=== PATIENT | female | born 1995 | race African-American/Black ===

== ENCOUNTER 2017-12-03 01:56 | Emergency (ER) | payer OTHER ==
[2017-12-03] MEDS ORDERED: Albuterol Sulfate 2.5 mg/3 ml Neb ONE (03:24)
[2017-12-03] MEDS ORDERED: Dexamethasone 10 MG/ML VIAL ONE (03:26)
[2017-12-03] MEDS ORDERED: Acetaminophen/Codeine 30-300mg Tablet ONE (03:26)
--- NOTE | 2017-12-03 08:15 | NM ---
PRELIMINARY REPORT/[facility]/EMERGENCY AFTER HOURS PROCEDURE: EXAM: NM Lung Perfusion and Ventilation Scan EXAM DATE/TIME: Exam ordered 12/03/2017 3:37 AM CLINICAL HISTORY: 22 years old, female; Signs and symptoms; Cough and dyspnea and shortness of breath; Symptoms not spe cified; Patient HX: Elevated d-dimer. 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 Pt states that today she got off of work and felt SOB. Reports back pain and chest pain with coughing. Pt reports chills and lighthea dedness. Pt had white count of 13 at [place] and d-dimer was not negative. Pt had chest CT completed t here which was suboptimal but negative. Pt states she coughed during CT scan. Denies h/o dvt or pe. L mp beginning of october, pt has h/o irregular periods. Not on control or any other hormones. Pt reports fmh of pe. Pt given lovenox and toradol at [place] TECHNIQUE: Nuclear Medicine ventilation and perfusion images of the lungs were obtained in multiple projections following radiopharmaceutical inhalation/injection. COMPARISON: No relevant prior studies available. FINDINGS: Ventilation: Normal. No ventilation defects. Perfusion: Normal. No perfusion defects. IMPRESSION: No findings to suggest pulmonary embolism. Thank you for allowing us to participate in the care of your patient. Dictated and Authenticated by: Levi Wray MD 12/03/2017 5:07 AM Central Time ([place] & [place])] FINAL REPORT VQ SCAN: I agree with the preliminary report given by Dr. Levi Wray of [facility]. 11.9 mCi Xenon 133 were administered by inhalation for the ventilation study followed by the intraven ous administration of 6.6 mCi technetium 99m-MAA for the perfusion scan. There is no evidence of PE. POS: OFF
== END 2017-12-03 05:31 | disposition home or self-care (01) ==
LOC: ERS 01:56
DX: J20.8 Acute bronchitis due to other specified organisms (principal)
CPT/HCPCS: 78582; 87804; 94640; 96374; A9540; A9558; J1100; J7611

== ENCOUNTER 2018-01-26 19:38 | Emergency (ER) | payer OTHER ==
[2018-01-26 20:03] LABS: #Eosinphils 0.1 thou/uL (0.0-0.7); #Lymphocytes 1.4 thou/uL (1.20-3.40); #Monocytes 0.9 thou/uL (0.11-0.59); #Neutrophils 7.5 thou/uL (1.40-6.50); %Basophils 0.2 % (0.0-1.0); %Eosinophils 1.5 % (0.0-10.0); %Lymphocytes 13.9 % (21.0-51.0); %Monocytes 9.2 % (0.0-10.0); %Neutrophils 75.2 % (42.0-75.0); Hemoglobin 15.5 g/dL (12.0-16.0); Mean Corpuscular HGB CONC 33.4 g/dL (32.0-36.0); Mean Corpuscular Hemoglobin 27.7 pg (27.0-31.0); Mean Corpuscular Volume 82.9 fl (81.0-99.0); Mean Platelet Volume 7.5 fL (7.4-10.4); Platelet Count 273 thou/uL (130-400); RBC Distribution Width 12.3 % (11.5-14.5)
[2018-01-26] MEDS ORDERED: Acetaminophen 500 MG TAB ONE (20:08)
[2018-01-26] MEDS ORDERED: Ibuprofen 800 MG TAB ONE (20:08)
[2018-01-26] MEDS ORDERED: Dexamethasone 10 MG/ML VIAL ONE (20:20)
[2018-01-26 20:22] LABS: BHCG - Serum Negative (NEGATIVE); Pregs Control Background? CLEAR/WHITE (CLR/WHITE); Pregs Control Bar Appear? YES (CONTROL BAR)
[2018-01-26 20:28] LABS: ALT (SGPT) 14 U/L (8-55); AST (SGOT) 15 U/L (5-34); Albumin 4.4 g/dL (3.5-5.0); Alkaline Phosphatase 61 U/L (40-150); Anion Gap 15 mmol/L (10-20); BUN (Urea Nitrogen) 11 mg/dL (7.0-18.7); Bilirubin, Total 0.4 mg/dL (0.2-1.2); Calc. Creatinine Clearance 0 mL/min (70-130); Calcium 9.9 mg/dL (7.8-10.44); Carbon Dioxide 25 mmol/L (22-29); Chloride 103 mmol/L (98-107); Estimated GFR-MDRD 89; Globulin 4.2 g/dL (2.4-3.5); Glucose 106 mg/dL (70-105); Potassium 3.6 mmol/L (3.5-5.1); Protein, Total 8.6 g/dL (6.0-8.3); Sodium 139 mmol/L (136-145)
== END 2018-01-26 22:17 | disposition home or self-care (01) ==
LOC: ERS 19:38
DX: J02.9 Acute pharyngitis, unspecified (principal); E86.0 Dehydration
CPT/HCPCS: 80053; 84703; 85025; 87081; 87430; 96361; 96365; 96375; J0696; J1100

== ENCOUNTER 2018-08-11 13:56 | Outpatient (CLI) | payer OTHER ==
--- NOTE | 2018-08-11 16:21 | ULT ---
ULTRASOUND AT LESS THAN FOURTEEN WEEKS: HISTORY: A 23-year-old female with a history of a first trimester with a history of multiple miscarr iages in the past. TECHNIQUE: Transabdominal, transvaginal, and vascular duplex with color and spectral Doppler imaging is performe d. FINDINGS: The uterus is within normal limits in size. The right ovary measures 2.6 x 2.9 x 3.7 cm. The left o vary is not seen. There is a 1.4 x 1.8 cm right-sided ovarian cyst. There is an intrauterine gestat ional sac and probably a small pole. There appears to be cardiac activity within the very smal l pole with a heart rate of 91 beats per minute. No definite extra-chorionic hemorrhage. Barnhart-rump is very small and approximates 0.3 cm, which would be equivalent to 5 weeks' 6 days' ges tation with a gestational sac. Mean size of 1.5 cm is equivalent to 6 weeks 2 days. On vascular duplex with color and spectral Doppler imaging demonstrates arteria inflow and venous out flow to the right ovary. IMPRESSION: Evidence for an early intrauterine gestational sac at approximately 6 weeks 1 day with an expected da te of confinement of 04/05/2019. heart rate approximately 91 beats per minute. Consider follow-up serum hCGs to document evolution of the , if there is concern, a follow-u p study in several weeks might be considered. POS: REDDY
== END 2018-08-11 13:57 | disposition home or self-care (01) ==
LOC: SCSULT 13:56
PROVIDERS: ATTEND Family Medicine
DX: Z34.81 Encounter for supervision of other normal pregnancy, first trimester (principal)
CPT/HCPCS: 76856

== ENCOUNTER 2018-11-18 12:53 | Outpatient (CLI) | payer OTHER ==
--- NOTE | 2018-11-18 14:41 | ULT ---
OBSTETRIC SONOGRAM: History: Second trimester gestation. evaluation. FINDINGS: Single intrauterine gestation in cephalic presentation. Cervix is closed and 3.2 cm. Grade 0 placenta is posterior. Amniotic fluid is within normal limits. spine and kidneys are intact as visualiz ed. Three vessel cord shows a normal insertion. No gross intracranial abnormalities are apparent. Fou r chamber heart shows motion at 153 beats/minute. Measurements are as follows: BPD 20 weeks 1 day HC 20 weeks 0 day AC 20 weeks 2 days FL 20 weeks 3 days Estimated date of delivery based on today's sonogram is 04-06-19. Hadlock 30 percentile. IMPRESSION: Single viable intrauterine gestation with estimated gestational age based on today's sonogram of 20 w eeks 1 day. POS: TPC
== END 2018-11-18 12:54 | disposition home or self-care (01) ==
LOC: SCSULT 12:53
PROVIDERS: ATTEND Family Medicine
DX: Z34.92 Encounter for supervision of normal pregnancy, unspecified, second trimester (principal); Z3A.19 19 weeks gestation of pregnancy
CPT/HCPCS: 76805

== ENCOUNTER 2019-04-04 23:52 | Day surgery (SDC) | payer OTHER ==
[2019-04-05 00:37] VITALS: BMI 39.0
--- NOTE | 2019-04-05 01:15 | PDOC.FPROB ---
FMR OB H&P: Medications - Current Home Medications: Medication Instructions Recorded Confirmed Type Ferrous Sulfate [Iron] 325 mg PO DAILY 04/05/19 04/05/19 History Pnv No.95/Ferrous Fum/Folic AC 1 each PO 04/05/19 History [ [place]let] Allergies/Adverse Reactions: Allergies Allergy/AdvReac Type Severity Reaction Status Date / Time No Known Allergies Allergy Verified 04/05/19 00:31 FMR OB H&P: A/P - Problem List (1) Term Current Visit: Yes Status: Acute Code(s): Z34.90 - ENCNTR FOR SUPRVSN OF NORMAL , UNSP, UNSP TRIMESTER Discussion: Date/Time: 04/05/19 011 PCP: Maya Perez HPI: This is a 22 yo at 39.5 wks by 5.6wk US presenting for contractions which started about 2 hours prior to arrival. She states she is feeling them about every 5 minutes and thinks she lost her mucous plug earlier in the day. She was closed when Dr. Perez checked in the office earlier in the week. She denies leakage of fluid. States she feels baby moving often. She is able to talk through the contractions but states they are fairly painful. Denies FRAGA, visual changes, SOB, or swelling. History: OB hx: 2 spontaneous abortions PMH: anxiety/depression no meds PSH: neg Meds: PNV, iron All: NKDA Soc Hx: denies smoking, alcohol, drugs Fam Hx: denies downs, denies pre-e, + autism Blood type: B neg Abs screen neg Hep b neg RPR/HIV neg Rubella non-immune GC/CT neg 1 hr GCT: 99 GBS: neg REVIEW OF SYSTEMS: Gen: no fever, chills, or sweats Neuro: no numbness/tingling, no weakness, denies headache ENT: denies congestion Eyes: no visual changes Resp: no cough, no SOB, no wheeze Card: denies chest pain, no palpitations GI: no N/V/D, no abdominal pain : no dysuria, no hematuria Skin: no rash, no erythema Psych: denies hx anxiety/depression Vitals: T: 98.3 R: 18 BP: 131/78 P:90 Sat: 98% on RA Wt: 130kg PHYSICAL EXAMINATION: General: NAD, alert and oriented x3 HEENT: EOMI, normal sclera Neck: Supple. Full ROM. Heart/Cardiovascular System: RRR, Cap refill < 3 seconds, no rub, no murmur Lungs/Respiratory System: clear to auscultation bilaterally. No increased work of breathing. Room air. Abdomen/Gastro-Intestinal System: no abdominal tenderness, normal bowel sounds, Gravid, obese Extremities: Warm extremities. No cyanosis or edema. Neuro: No gross deficits appreciated Psychiatry: Awake, Alert and cooperative with exam Skin: No lesions, rashes Musculoskeletal: Full ROM A/P: This is a 22 yo at 39.5 wks by 1TUS presenting for contractions FHT: baseline 140, moderate variability, accels 15x15 present Charlack: cxns q 2-3 minutes # Labor Check - 1.5/50/-2/soft/intact at 0040 - cxns q 2-3 min - will re-check in 1-2 hours to assess for progression - would like epidural when applicable # Term intrauterine - B neg blood type, s/p rhogam - rubella non-immune, MMR PP - GBS neg - BMI 39 OBGYN FACULTY: I have seen and examined this patient. Patient of Dr Maya Santiago with latent labor at 1.5cm. Has IOL Saturday. No CX warp changer 1.5 hrs. Strip is reactive. OK for outpatient folow up as CTX have spaced out some. Vitals stable.
[2019-04-05] MEDS ORDERED: hydrALAZINE 20 MG/ML VIAL SLOW IVP PRN (01:20)
--- NOTE | 2019-04-05 02:32 | PDOC.EVN ---
Event Note - Event Note Event Note: no change after 1.5 hours cxns spaced out to every 5-7 FHT: accels present, good variability, no decels patient lives in [place] discussed going home with precautions and patient agrees with plan will return for strong contractions 5 min apart, ROM, bleeding, or fever Patient has f/u with Maya Perez on Saturday. OBGYN Faculty: Agreed. I have seen the patient at bedside, she is comfortable and does not appear to be in actice labor. Vitals are stable and WNL.
== END 2019-04-05 02:38 | disposition home or self-care (01) ==
LOC: L&D/OP 23:52
PROVIDERS: ATTEND Family Medicine
DX: O47.1 False labor at or after 37 completed weeks of gestation (principal); O99.343 Other mental disorders complicating pregnancy, third trimester; F41.9 Anxiety disorder, unspecified; F32.9 Major depressive disorder, single episode, unspecified; Z3A.39 39 weeks gestation of pregnancy
CPT/HCPCS: 99283

== ENCOUNTER 2019-04-06 05:36 | Day surgery (SDC) | payer OTHER ==
--- NOTE | 2019-04-07 04:29 | SS ---
DATE OF ADMISSION: 04/06/2019 DATE OF DISCHARGE: 04/06/2019 REGULAR PHYSICIAN: Levi Perez MD EVALUATING PHYSICIAN: Andres Dye MD CHIEF COMPLAINT: Contractions at home. HISTORY OF PRESENT ILLNESS: Ms. Raza is a 23-year-old black G1, P0 with an estimated date of confinement of 04/07/2019, who presents complaining of contractions every 5 minutes at home since earlier this morning. She denies ruptured membranes or vaginal bleeding. Her care has been with Dr. Perez. She was seen for similar complaints approximately 36 hours ago. PAST MEDICAL HISTORY: None. PAST SURGICAL HISTORY: None. CURRENT MEDICATIONS: vitamins and iron. ALLERGIES: NO KNOWN ALLERGIES. SOCIAL HISTORY: Denies tobacco, alcohol, or drug use. FAMILY HISTORY: Unremarkable. REVIEW OF SYSTEMS: She denies nausea, vomiting, fever, chills, ruptured membranes or vaginal bleeding. PHYSICAL EXAMINATION: VITAL SIGNS: Vital signs in triage are stable. She is afebrile. GENERAL: She is pleasant, in no acute distress. ABDOMEN: Soft, nontender, and gravid. CERVIX: Cervical exam by labor nurse is 1-2 cm dilated, 75% effaced with the vertex at the -1 position. This is essentially equivalent to her last exam here. heart rate tracing is stable. Good [id number] variability and accelerations are seen. Irregular contractions are noted. ASSESSMENT: 1. Term intrauterine . 2. Prodromal labor, no evidence of active labor at this time. PLAN: The patient has been dismissed to home. She has been given complete precautions. She has an appointment with Dr. Perez this week. Dr. Perez was notified. Job ID: [id number]
--- NOTE | 2019-04-07 12:12 | HP ---
HISTORY: This is a 23-year-old black female, G3, P0, with EDC of 04/07/2019, who is being admitted to Labor and Delivery for active labor. The patient's course has been uncomplicated. She has done well. She states that she has been jim regularly for the past 24 hours. She has had several visits to Labor and Delivery. She was seen this morning in the office and found to be 6 cm dilated, 0 station with bag of water bulging. PAST MEDICAL HISTORY: Unremarkable. ALLERGIES: NONE. PAST SURGICAL HISTORY: None. FAMILY HISTORY: She does have a sibling with autism and ADHD. No family history of cancers or heart disease. SOCIAL HISTORY: She is single, has a common-law partner. She does not smoke and does not drink. REVIEW OF SYSTEMS: As above. PHYSICAL EXAMINATION: VITAL SIGNS: Stable. Afebrile. HEENT: Clear. HEART: Regular rate and rhythm. LUNGS: Clear. ABDOMEN: Gravid. Contractions every 2 to 3 minutes. Cervix 6 cm, 100% bulging bag of water, 0 station. LABORATORY DATA: GBS negative. HIV negative. 1-hour GCT 99. Pap normal. GC and chlamydia negative. TSH, normal. HIV, negative. Hepatitis B, negative. RPR, negative. Rubella nonimmune. B negative blood type. ASSESSMENT: 1. Term . 2. Active labor, 6 cm dilated. 3. B negative blood type. PLAN: 1. Admit to L and D. 2. Routine L and D orders. 3. Anesthesia for epidural. Job ID: [id number]
== END 2019-04-06 06:45 | disposition home or self-care (01) ==
LOC: L&D/OP 05:36
PROVIDERS: ATTEND Family Medicine
DX: O47.9 False labor, unspecified (principal)
CPT/HCPCS: 99282

== ENCOUNTER 2019-04-07 04:17 | Inpatient (IN) | payer OTHER ==
[2019-04-07] MEDS ORDERED: Bupivacaine HCl 0.5%/Epinephrine 1:200,000/PF 30 ml Vial ONE (09:00)
[2019-04-07] MEDS ORDERED: Lidocaine 2% MPF 10 ML AMP (For Epidural Use) ONE (09:00)
[2019-04-07] MEDS ORDERED: HYDROcodone/Acetaminophen 5/325 mg Tablet PO PRN (11:33)
[2019-04-07] MEDS ORDERED: Promethazine HCl 25 MG/ML VIAL IM PRN ×2 (11:33→12:17)
[2019-04-07] MEDS ORDERED: hydrALAZINE 20 MG/ML VIAL SLOW IVP PRN ×2 (11:33→22:32)
[2019-04-07] MEDS ORDERED: NS / Oxytocin 40 units/1000ml 1,000 ML IV PRN (11:33)
[2019-04-07] MEDS ORDERED: Acetaminophen 500 MG TAB PO PRN (11:33)
[2019-04-07] MEDS ORDERED: Methylergonovine 0.2 MG/ML VIAL IM PRN (11:33)
[2019-04-07] MEDS ORDERED: Lidocaine 1% (PF) 30 ML VIAL SC PRN (11:33)
[2019-04-07] MEDS ORDERED: Misoprostol 200 MCG TAB PR PRN (11:33)
[2019-04-07] MEDS ORDERED: Ibuprofen 800 MG TAB PO PRN (11:33)
[2019-04-07] MEDS ORDERED: Ondansetron PF 4 MG/2 ML Vial IVP PRN ×3 (11:33→22:32)
[2019-04-07] MEDS: Lactated Ringer's 1,000 ML IV SCH ×2 (11:45→23:25)
[2019-04-07] MEDS ORDERED: Fentanyl 4 mcg/Bup 0.1% Cadd 100 ML ONE ×2 (12:01→17:37)
[2019-04-07 12:06] LABS: Hemoglobin 13.6 g/dL (12.0-16.0); Mean Corpuscular HGB CONC 33.5 g/dL (32.0-36.0); Mean Corpuscular Hemoglobin 26.6 pg (27.0-31.0); Mean Corpuscular Volume 79.3 fL (78.0-98.0); Mean Platelet Volume 8.4 fL (7.4-10.4); Platelet Count 221 thou/uL (130-400); RBC Distribution Width 14.7 % (11.5-14.5); Red Blood Cell (RBC) Count 5.11 mill/uL (4.20-5.40); White Blood Cell (WBC) Count 15.5 thou/uL (4.8-10.8)
[2019-04-07] MEDS ORDERED: diphenhydrAMINE 50 MG/ML VIAL IVP PRN (12:17)
[2019-04-07] MEDS ORDERED: ePHEDrine/0.9% NaCl/PF SYRINGE 50 mg/10 ml SLOW IVP PRN (12:17)
[2019-04-07] MEDS ORDERED: Naloxone HCl 0.4 mg/ml Vial IVP PRN ×2 (12:17)
[2019-04-07] MEDS ORDERED: Lactated Ringer's 500 ML IV PRN (12:17)
[2019-04-07] MEDS ORDERED: Communication Order-Pharmacy FS SCH (12:30)
[2019-04-07 12:50] VITALS: BMI 38.6
[2019-04-07 12:53] LABS: Syphilis Antibody Nonreactive (Nonreactive); Syphilis Antibody Index 0.03 S/CO (<1.00 Non-Reactive)
[2019-04-07 12:55] LABS: HBSAg Index 0.24 S/CO (0-0.99); Hep B Surf Ag Non-Reactive S/CO (NonReactive)
[2019-04-07] MEDS: Fentanyl 4 mcg/Bupivacaine 0.1% Cassette 100 ML EPIDURAL SCH ×2 (13:08→17:46)
[2019-04-07] MEDS ORDERED: NS w/ Oxytocin 10 units 0 ML ONE (14:52)
[2019-04-07] MEDS ORDERED: NS w/ Oxytocin 10 units 500 ML ONE (14:52)
[2019-04-07] MEDS ORDERED: NS w/ Oxytocin 10 units 500 ML IVPB SCH (15:45)
[2019-04-07] MEDS ORDERED: diphenhydrAMINE 25 MG CAP PO PRN (22:32)
[2019-04-07] MEDS ORDERED: Bisacodyl 10 MG SUPP PR PRN (22:32)
[2019-04-07] MEDS ORDERED: Milk Of Magnesia 30 ML UDCUP PO PRN (22:32)
[2019-04-07] MEDS ORDERED: Lanolin Ointment 7 GM TUBE TOP PRN (22:32)
[2019-04-07] MEDS ORDERED: Preparation H Ointment 28 GM TUBE PR PRN (22:32)
[2019-04-07] MEDS ORDERED: NS / Oxytocin 40 units/1000ml 1,000 ML IV SCH (22:32)
[2019-04-07] MEDS ORDERED: Benzocaine-Menthol 82.5 ML CAN TOP PRN (22:32)
[2019-04-07] MEDS: Acetaminophen 325 MG TAB PO PRN (22:53)
[2019-04-07] MEDS: Ibuprofen 800 MG TAB PO SCH (23:12)
[2019-04-08] MEDS: Ibuprofen 800 MG TAB PO SCH ×3 (06:01→21:25)
[2019-04-08] MEDS: Docusate Calcium (SURFAK) 240 MG CAP PO SCH ×2 (08:09→21:25)
[2019-04-08] MEDS: Prenatal Vitamin 1 TAB PO SCH (08:09)
[2019-04-08] MEDS: Ferrous Sulfate 325 MG TAB PO SCH ×2 (08:09→15:43)
[2019-04-08] MEDS ORDERED: Adacel (T-DAP) 0.5 ML SYRINGE IM ONE (09:00)
[2019-04-08 09:15] LABS: Hemoglobin 11.9 g/dL (12.0-16.0); Mean Corpuscular HGB CONC 34.1 g/dL (32.0-36.0); Mean Corpuscular Hemoglobin 27.6 pg (27.0-31.0); Mean Corpuscular Volume 81.1 fL (78.0-98.0); Mean Platelet Volume 8.1 fL (7.4-10.4); Platelet Count 193 thou/uL (130-400); RBC Distribution Width 14.9 % (11.5-14.5); Red Blood Cell (RBC) Count 4.32 mill/uL (4.20-5.40); White Blood Cell (WBC) Count 18.5 thou/uL (4.8-10.8)
--- NOTE | 2019-04-08 11:50 | PDOC.OBLPN ---
FMR OB Labor PN: Subj - Interval History Hospital Day: 1 Chief Complaint: Medically indicated IOL for IUGR Indentification: 23 year old at 39.2 wks by 8.2 wk sono Interval History: Balloon placed, pain better controlled with epidural FMR OB Labor PN: Obj - Maternal Vital signs: BP: [] HR: [] RR: [] Tmax: [] Pox: []% on [] Wt: [] - Procedures Procedures: Cook's balloon FMR OB Labor PN: Exam - Physical Exam General: NAD, awake, alert and oriented HEENT: MMM, grossly normal vision, grossly normal hearing Heart: RRR, pulses present, no edema General: no respiratory distress Abdomen: soft, gravid, non-tender Musculoskeletal: pulses present, FROM in all four extremities Neurological: no focal deficit Skin: no rash, capillary refill <2 seconds - Pelvic Exam SVE: By Vitaly @ 11:30 AM 2/60/-3, soft, midposition FMR OB Labor PN: Data - Labs Lab results: Laboratory Results - last 24 hr 04/07/19 04/07/19 04/07/19 11:46 11:46 11:46 WBC RBC Hgb Hct MCV MCH MCHC RDW Plt Count MPV Syphilis IgG/IgM Ab Nonreactive Hep Bs Antigen Non-Reactive Blood Type B NEGATIVE Antibody Screen NEGATIVE 04/07/19 04/08/19 11:46 08:59 WBC 15.5 H 18.5 H RBC 5.11 4.32 Hgb 13.6 11.9 L Hct 40.5 35.0 L MCV 79.3 81.1 MCH 26.6 L 27.6 MCHC 33.5 34.1 RDW 14.7 H 14.9 H Plt Count 221 193 MPV 8.4 8.1 Syphilis IgG/IgM Ab Hep Bs Antigen Blood Type Antibody Screen FMR OB Labor PN: A/P Discussion: Date/Time: 04/08/19 1148 This H&P was discussed with [] and [] who agree with the above documentation and plan.
[2019-04-09] MEDS: Ibuprofen 800 MG TAB PO SCH ×2 (05:24→13:55)
[2019-04-09] MEDS: Ferrous Sulfate 325 MG TAB PO SCH (08:13)
[2019-04-09] MEDS: Prenatal Vitamin 1 TAB PO SCH (08:49)
[2019-04-09] MEDS: Docusate Calcium (SURFAK) 240 MG CAP PO SCH (08:49)
[2019-04-09 11:58] VITALS: BP 122/59; TEMP 98.5
--- NOTE | 2019-04-09 12:42 | PDOC.PP ---
Post Progress Note Post Day #: 2 Subjective: Doing well on PP day #2, no pain, baby feeding well. PO intake tolerated: yes Flatus: yes Ambulation: yes Vital Signs (12 hours) Temp Pulse Resp BP Pulse Ox 04/09/19 11:57 98.5 F 92 20 122/59 L 04/09/19 08:01 98.6 F 78 20 119/54 L 97 Weight Weight 285 lb - Physical Examination General: NAD Cardiovascular: no m/r/g, RRR Respiratory: clear to auscultation bilaterally, non-labored breathing Abdominal: + bowel sounds, lochia, no distention, appropriately TTP Result Diagrams: 04/08/19 08:59 Additional Labs: Post Labs Blood Type B NEGATIVE 04/07/19 11:46 Hep Bs Antigen Non-Reactive S/CO (NonReactive) 04/07/19 11:46 (1) Vaginal delivery Code(s): O80 - ENCOUNTER FOR FULL-TERM UNCOMPLICATED DELIVERY Status: Acute - Assessment/Plan Routine care D/C home F/U with Dr. Perez in 6 weeks
[2019-04-09] MEDS: Acetaminophen 325 MG TAB PO PRN (12:43)
[2019-04-09] MEDS ORDERED: Measles/Mumps/Rubella 10 MCG/0.5 ML VIAL SC ONE (14:30)
--- NOTE | 2019-04-10 11:15 | OP ---
DATE OF PROCEDURE: 04/07/2019 DELIVERING PHYSICIAN: Adele Haider DO PROCEDURE PERFORMED: Spontaneous vaginal delivery. ANESTHESIA: Epidural, local for repair. ESTIMATED BLOOD LOSS: Approximately 500 mL. PREOPERATIVE DIAGNOSIS: Term intrauterine , in labor. POSTOPERATIVE DIAGNOSES: 1. Term intrauterine , delivered. 2. Spontaneous vaginal delivery. INDICATIONS FOR PROCEDURE: This is a 23-year-old G3, P0-0-2-0, who presented in active labor. DELIVERY NOTE: This is a 23-year-old female G3, P0-0-2-0, delivered viable female via spontaneous vaginal delivery. Following an uneventful intrapartum course, a vigorous female was delivered over an intact perineum in the occiput anterior position. Anterior shoulder and the remainder of the body delivered. No nuchal cord. The head was held down. The mouth and nares were bulb suctioned. Cord was clamped and cut and cord blood collected. Placenta was delivered intact with a three-vessel cord noted. Fundal massage was performed and the fundus was firm. The cervix and vagina were inspected and found to have a second-degree perineal laceration which was repaired in the usual fashion with good approximation and hemostasis. Local anesthetic was used. Infant went to nursery in good condition for routine care. Apgars were 8 and 9 at 1 and 5 minutes respectively. The patient tolerated the delivery well, went to after routine recovery/care. Job ID: [id number] [facility]
== END 2019-04-09 14:33 | disposition home or self-care (01) | DRG 807 ==
LOC: L&D 11:10 → 3SE 22:57
PROVIDERS: ADMIT Family Medicine; ATTEND Family Medicine
PROC: 10E0XZZ Delivery of Products of Conception, External Approach (ICD-10-PCS; principal; 2019-04-08)
PROC: 0KQM0ZZ Repair Perineum Muscle, Open Approach (ICD-10-PCS; 2019-04-08)
DX: O70.1 Second degree perineal laceration during delivery (principal); Z37.0 Single live birth; Z3A.40 40 weeks gestation of pregnancy
CPT/HCPCS: 36415; 51702; 85027; 86780; 86850; 86900; 86901; 87340; 90707; 90715; 99282; 99283; J0670; J2001; J2590